=== PATIENT | female | born 1995 | race Caucasian/White ===

== ENCOUNTER 2017-04-25 08:57 | Outpatient (CLI) | payer BC ==
[~2017-04-25] VITALS: Ht 180.3 cm; Wt 81.6 kg
[~2017-04-25 08:57] MED LIST: CEPH500C PO; ERYT3.5O8 OP; FEXO-14 PO; FLUT1DIS3 IH; LOW-OGESTREL; MONT10TA21 PO; NITR-65 PO; PANT40TA2 PO; PHEN-640 PO; RT-ALBUINH IH; SUCR1ORA5 PO
[2017-04-25] MEDS ORDERED: FLUT1DIS26 IH (11:55)
[2017-04-25] MEDS ORDERED: MONT10TA24 PO (11:55)
[2017-04-25] MEDS ORDERED: CETI10TA17 PO (11:55)
[2017-04-25] MEDS ORDERED: NORE-98 PO (11:55)
== END 2017-04-25 11:56 ==
LOC: PREOP 08:57
PROVIDERS: ATTEND Surgery
DX: Z01.818 Encounter for other preprocedural examination (principal); K92.1 Melena

== ENCOUNTER 2017-04-30 10:53 | Day surgery (SDC) | payer BC ==
[~2017-04-30] VITALS: Ht 180.3 cm; Wt 81.6 kg
[~2017-04-30 10:53] MED LIST changes: +CETI10TA17 PO; +FLUT1DIS26 IH; +MONT10TA24 PO; +NORE-98 PO
[2017-04-30] MEDS ORDERED: LACTATED RINGERS 1,000 ML IV ONE (11:02)
[2017-04-30] MEDS ORDERED: LACTATED RINGERS 1,000 ML IV STA (11:02)
[2017-04-30] MEDS ORDERED: MIDAZOLAM 2 MG/2 ML (VERSED) VIAL ONE (11:11)
[2017-04-30] MEDS ORDERED: PROPOFOL INJECTION 50 ML IV ONE (11:11)
[2017-04-30 11:17] VITALS: BP 130/86
--- NOTE | 2017-04-30 11:26 | Progress Note-Pre Operative ---
Pre-Operative Progress Note H&P Reviewed The H&P was reviewed, patient examined and no changes noted. Date Seen by Provider: Apr 30, 2017 Time Seen by Provider: 11:24 Date H&P Reviewed: Apr 30, 2017 Time H&P Reviewed: 11:24 Pre-Operative Diagnosis: right lower quadrant abd pain, family hx colon cancer bright red bloodstool YULIET RICHTER DO Apr 30, 2017 11:26
[2017-04-30] MEDS ORDERED: proPOfol 200 MG/20 ML (DIPRIVAN) VIAL IV ONE (11:59)
[2017-04-30 12:30] VITALS: BP 109/74
--- NOTE | 2017-04-30 12:32 | Progress Note-Post Operative ---
Post-Operative Progess Note Surgeon (s)/Medical Liaison (s) Surgeon YULIET RICHTER DO Medical Liaison: na Pre-Operative Diagnosis right lower quadrant abd pain, family hx colon cancer bright red bloodstool Post-Operative Diagnosis normal colon Procedure & Operative Findings Date of Procedure 04/30/17 Procedure Performed/Findings colonoscopy with biopsy of ileum Anesthesia Type per executive office manager Estimated Blood Loss Estimated blood loss (mL): none Specimens/Packing Specimens Removed cold biopsy ileum YULIET RICHTER DO Apr 30, 2017 12:32
--- NOTE | 2017-04-30 12:33 | Discharge Inst-Simple/Standard ---
Discharge Inst-Standard Patient Instructions/Follow Up Plan of Care/Instructions/FU: 2 weeks [place] Activity as Tolerated: Yes Discharge Diet: Regular Diet (high fiber) YULIET RICHTER DO Apr 30, 2017 12:33
[2017-04-30 13:05] VITALS: BP 109/74
--- NOTE | 2017-04-30 21:02 | OPERATIVE REPORT ---
DATE OF SERVICE: 04/30/2017 PREOPERATIVE DIAGNOSES: Right lower quadrant abdominal pain, family history of colon cancer, bright red blood in stool. POSTOPERATIVE DIAGNOSIS: Normal colon. PROCEDURE: Colonoscopy with biopsies of the ileum. ANESTHESIA: Per BLAST FURNACE KEEPER. SURGEON: Yuliet Barahona DO ESTIMATED BLOOD LOSS: None. COMPLICATIONS: None. INDICATIONS: The patient is a 22-year-old female who has been having lots of right lower quadrant abdominal pain. She has had some bright red blood in her stools previously and she has family history of colon cancer. She understands risks and benefits of procedure and wished to proceed with the procedure. Consent was signed in the chart. DESCRIPTION OF PROCEDURE: The patient was taken to the endoscopy suite, placed in left lateral recumbent position. Timeout was performed. Digital rectal exam was performed. There were no palpable polyps, masses or ulcerations. The scope was inserted in the rectum and advanced all the way to the cecum with minimal difficulty. The ileocecal valve was intubated and the ileum has a little bit of slight prominence and biopsy was obtained. There were no polyps, masses or ulcerations. Scope was slowly retracted back into the colon where the prep was adequate as well. There were no polyps, masses or ulcerations within the cecum, ascending, transverse, descending and sigmoid colon. Once in the rectum, scope was also retroflexed noting no other pathology. Scope was returned to its normal position, slowly withdrawn until completely removed. The patient to follow up in the office in 2 weeks to discuss pathology results. She will need a repeat colonoscopy in 10 years prior to family history of colon cancer at age 49 . If she has any problems prior to that, she should be reevaluated at that time. Job ID: [id number] DocumentID: [id number] Dictated Date: 04/30/2017 12:43:28 Assembly Associate Date: 04/30/2017 18:48:47 Dictated By: YULIET BARAHONA DO
== END 2017-04-30 13:05 | disposition home or self-care (01) ==
LOC: ENDO 10:53
PROVIDERS: ATTEND Surgery
DX: K62.5 Hemorrhage of anus and rectum (principal); R10.31 Right lower quadrant pain; Z80.0 Family history of malignant neoplasm of digestive organs; J45.909 Unspecified asthma, uncomplicated; Z79.899 Other long term (current) drug therapy
CPT/HCPCS: 84703